=== PATIENT | male | born 2000 | race Caucasian/White ===

== ENCOUNTER 2021-08-12 09:38 | Emergency (ER) | payer OTHER ==
[~2021-08-12] VITALS: Ht 172.7 cm; Wt 74.4 kg
[2021-08-12] MEDS ORDERED: PARO30 PO (10:42)
== END 2021-08-12 11:50 | disposition home or self-care (01) ==
LOC: US 09:38 → ER 09:38 → US 10:00 → EDSTATUS 10:00 → ER 11:50
DX: S30.22XA Contusion of scrotum and testes, initial encounter (principal); W22.8XXA Striking against or struck by other objects, initial encounter
CPT/HCPCS: 76870; 99283-25